=== PATIENT | male | born 1960 | race Caucasian/White ===

== ENCOUNTER 2018-02-13 09:19 | Emergency (ER) | payer MEDICARE, OTHER ==
[2018-02-13 09:34] VITALS: BP 126/71
[2018-02-13] MEDS ORDERED: HYDROCODONE/ACETAMINOPHEN 5-325 MG TABLET PO ONE (09:40)
--- NOTE | 2018-02-13 09:48 | ER Document Report ---
ED Medical Screen (RME) - General Chief Complaint: Toe Injury Stated Complaint: TOE INJURY Time Seen by Provider: 02/13/18 09:39 Mode of Arrival: Ambulatory Information source: Patient TRAVEL OUTSIDE OF THE [place] IN LAST 30 DAYS: No - HPI Patient complains to provider of: pain in the toe Onset: Yesterday - 57-year-old male presents for evaluation of pain and swelling in his left second toe after being at the beach yesterday and having a touch on the sand, he has been able to ambulate with a sense but notes that it seems particularly floppy, he is got intense swelling and pain in the base of the toe. Denies any injury elsewhere, he notes that he has a complex past medical history related to his feet which involved pending and changes in the way in which they were set because of rheumatoid arthritis with toes crawling underneath. Denies any other complaints at this time. - Related Data Allergies/Adverse Reactions: No Known Allergies Allergy (Verified 02/13/18 09:24) Past Medical History - General Information source: Patient, Relative Renal/ Medical History: Denies: Hx Peritoneal Dialysis Past Surgical History: Reports: Hx Orthopedic Surgery Review of Systems - Review of Systems -: Yes All other systems reviewed and negative Physical Exam - Vital signs Vitals: Temp Pulse Resp BP Pulse Ox 98.3 F 57 L 16 126/71 H 100 02/13/18 09:33 02/13/18 09:33 02/13/18 09:33 02/13/18 09:33 02/13/18 09:33 - General General appearance: Appears well In distress: None - HEENT Head: Normocephalic Eyes: Normal Conjunctiva: Normal Cornea: Normal Extraocular movements intact: Yes - Respiratory Respiratory status: No respiratory distress - Abdominal Inspection: Normal Tenderness: Nontender - Back Back: Normal - Extremities General upper extremity: Normal inspection Foot: Other - The left foot demonstrates an amputation of the third toe, there is marked swelling and ecchymoses over the second toe, tender to palpation at the base of the second digit, normal range of motion in the great toe, no midfoot tenderness, strong DP pulse, normal range of motion in the ankle, no tenderness in the calcaneus - Neurological Neuro grossly intact: Yes Orientation: AAOx4 [place] Coma Scale Eye Opening: Spontaneous [place] Coma Scale Verbal: Oriented [place] Coma Scale Motor: Obeys Commands [place] Coma Scale Total: 15 Speech: Normal Course - Re-evaluation Re-evalutation: 02/13/18 09:48 57-year-old male presents for evaluation of pain and swelling in his left second toe. Happened after he was at the beach and caught on the same, on examination there is marked ecchymosis and tenderness at the foot at the base of the second toe. His great toe is intact with normal range of motion Brent good vasculature including brisk capillary refill is strong DP pulse. Current plan is for this patient to undergo x-ray of the left foot and toe with probable alexia taping in addition to administration of flat soled shoe. We will give prescription for brief course of narcotic medication, will plan for this patient follow-up with his primary orthopedist as he is currently visiting from out of town. Patient with negative radiographs of the foot, does have tenderness at the base of the toe, will use alexia taping and a flat sole shoe. Plan for discharge with return precautions follow-up in orthopedics. 02/13/18 10:23 - Vital Signs Vital signs: Temp Pulse Resp BP Pulse Ox 98.3 F 57 L 16 126/71 H 100 02/13/18 09:33 02/13/18 09:33 02/13/18 09:33 02/13/18 09:33 02/13/18 09:33 Doctor's Discharge - Discharge Clinical Impression: Toe sprain Qualifiers: Encounter type: initial encounter Qualified Code(s): S93.509A - Unspecified sprain of unspecified toe(s), initial encounter Foot pain Qualifiers: Laterality: left Qualified Code(s): M79.672 - Pain in left foot Condition: Good Disposition: HOME, SELF-CARE Instructions: Alexia Taping (toes) ([facility]) Additional Instructions: Your seen today for your toe injury, you had an evaluation including physical exam as well as x-rays, the x-rays do not demonstrate any obvious breaks or dislocations. You been given the contact information for an orthopedic surgeon, call them or a wallpaper hanger for follow-up within the next week. Use the flat soled shoe provided to you every day until you are followed up, Alexia tape your toes every day until you are seen again. Prescriptions: Hydrocodone/Acetaminophen [[place] 5-325 mg Tablet] 1 tab PO Q8H #16 tablet Referrals: KADE GAUTHIER MD [ACTIVE STAFF] - Follow up as needed
--- NOTE | 2018-02-13 10:11 | RADIOLOGY REPORT (SQ) ---
EXAM DESCRIPTION: TOE LEFT COMPLETED DATE/TIME: 02/13/2018 9:59 am REASON FOR STUDY: pain in foot COMPARISON: None. NUMBER OF VIEWS: Three views. TECHNIQUE: AP, lateral, and oblique images acquired of the left first toe. LIMITATIONS: None. FINDINGS: MINERALIZATION: Normal. BONES: No acute fracture or dislocation. No worrisome bone lesions. No significant osteophytes. JOINTS: No erosions. No trevon-articular osteopenia. No chondrocalcinosis. SOFT TISSUES: No swelling. No calcifications. OTHER: No other significant finding. IMPRESSION: NO SIGNIFICANT RADIOGRAPHIC ABNORMALITY. COMMENT: SITE OF TRAUMA/COMPLAINT MARKED/STAMP COMPLETED: YES. TECHNICAL DOCUMENTATION: JOB ID: [id number] [employer]- All Rights Reserved Reading location - IP/workstation name: [email or web address]
--- NOTE | 2018-02-13 10:12 | RADIOLOGY REPORT (SQ) ---
EXAM DESCRIPTION: FOOT LEFT 2 VIEWS COMPLETED DATE/TIME: 02/13/2018 9:59 am REASON FOR STUDY: pain in foot COMPARISON: None. NUMBER OF VIEWS: Three views. TECHNIQUE: AP, lateral and oblique radiographic images acquired of the left foot. LIMITATIONS: None. FINDINGS: MINERALIZATION: Normal. BONES: Chronic deformity of the 2nd through 5th metatarsals. 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 Subluxation of the MTP joint of the 2nd toe. Surgical fusion in the midfoot with extensive hardware. Degenerative changes with osteophytes at the 1st tarsal metatarsal joint. JOINTS: No effusions. SOFT TISSUES: No soft tissue swelling. No foreign body. OTHER: No other significant finding. IMPRESSION: CHRONIC CHANGES DETAILED ABOVE. NO APPARENT ACUTE FINDINGS. TECHNICAL DOCUMENTATION: JOB ID: [id number] [employer]- All Rights Reserved Reading location - IP/workstation name: [email or web address]
== END 2018-02-13 10:30 | disposition home or self-care (01) ==
LOC: ER 09:19
DX: S93.509A Unspecified sprain of unspecified toe(s), initial encounter (principal); M79.672 Pain in left foot; X58.XXXA Exposure to other specified factors, initial encounter
CPT/HCPCS: 99283; 73620; 73660; A9270

== ENCOUNTER 2018-11-15 18:44 | Emergency (ER) | payer MEDICARE, MEDICAID ==
[2018-11-15] MEDS ORDERED: ACETAMINOPHEN 325 MG TABLET PO ONE (18:55)
[2018-11-15] MEDS ORDERED: ONDANSETRON ODT 4 MG TAB (6 TAB/ER DISP) PO PRN (18:55)
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
[2018-11-15 19:14] VITALS: BP 141/93
== END 2018-11-15 19:18 | disposition home or self-care (01) ==
LOC: ER 18:44
DX: S09.90XA Unspecified injury of head, initial encounter (principal); R51 Headache; R42 Dizziness and giddiness; R11.0 Nausea; Y04.2XXA Assault by strike against or bumped into by another person, initial encounter; F17.200 Nicotine dependence, unspecified, uncomplicated
CPT/HCPCS: 99284